=== PATIENT | male | born 1970 | race Caucasian/White ===

== ENCOUNTER 2020-09-08 09:57 | Emergency (ER) | payer BC ==
--- NOTE | 2020-09-08 10:13 | EDM.PDOC ---
ED HPI GENERAL MEDICAL PROBLEM - General Stated Complaint: A FIB Time Seen by Provider: 09/08/20 10:08 Source of Information: Reports: Patient, RN, RN Notes Reviewed History Limitations: Reports: No Limitations - History of Present Illness INITIAL COMMENTS - FREE TEXT/NARRATIVE: Patient is a 50-year-old male who presents to ER with complaint of fluttering in his chest, rapid heartbeat, dizziness, and diaphoresis. Patient states this began about 1/2-hour prior to arrival to the ER. He states he was sitting at his desk working. States a coworker checked his pulse and states his heart rate was in the 160s. Patient was diaphoretic and somewhat dizzy at that time. He states he has had episodes similar to this a few times over the past 6 months to 1 year. Patient states he has never come to the ER for them and has not been worked up by his primary care provider. Patient states his symptoms have resolved. Upon arrival to the ER patient is in a sinus rhythm at a controlled rate of 60s to 70s. Patient states history of open heart surgery for pericarditis in 2003. Patient denies any recent illness fever, chills, nausea, vomiting, diarrhea, chest pains, shortness of breath. Patient states he did have Covid in April, and has not been vaccinated. Also complains that the right lower leg has been more swollen than the left. Denies pain today. States approximately 3 weeks ago he was having some right knee pain which has resolved. Onset: Today, Sudden - Related Data Allergies Allergy/AdvReac Type Severity Reaction Status Date / Time No Known Allergies Allergy Verified 09/08/20 10:14 Home Meds: Home Meds Omeprazole 20 mg PO DAILY 09/08/20 [History] ED ROS GENERAL - Review of Systems Review Of Systems: Comprehensive ROS is negative, except as noted in HPI. ED EXAM, GENERAL - Physical Exam Exam: See Below Exam Limited By: No Limitations General Appearance: Alert, WD/WN Eye Exam: Bilateral Eye: EOMI, Normal Inspection Ears: Normal External Exam, Hearing Grossly Normal Nose: Normal Inspection Throat/Mouth: Normal Inspection, Normal Voice, No Airway Compromise Head: Atraumatic, Normocephalic Neck: Normal Inspection, Supple, Non-Tender, Full Range of Motion Respiratory/Chest: No Respiratory Distress, Lungs Clear, Normal Breath Sounds, No Accessory Muscle Use, Chest Non-Tender Cardiovascular: Normal Peripheral Pulses, Regular Rate, Rhythm, No Edema, No Gallop, No JVD, No Murmur, No Rub Peripheral Pulses: 2+: Radial (L), Radial (R), Dorsalis Pedis (L), Dorsalis Pedis (R) GI/Abdominal: Normal Bowel Sounds, Soft, Non-Tender (Male) Exam: Deferred Rectal (Males) Exam: Deferred Back Exam: Normal Inspection, Decreased Range of Motion Extremities: Normal Range of Motion, Non-Tender, Other (Right calf larger than left calf by 1-3/4 inches.). No: Kelsi's Sign Neurological: Alert, Oriented, CN II-XII Intact, Normal Cognition, Normal Gait, Normal Reflexes, No Motor/Sensory Deficits Psychiatric: Normal Affect, Normal Mood Skin Exam: Warm, Dry, Intact, Normal Color, No Rash Lymphatic: No Adenopathy Course - Vital Signs Last Recorded V/S: Last Vital Signs Temp 95.6 F L 09/08/20 10:14 Pulse 75 09/08/20 10:14 Resp 17 09/08/20 10:14 BP 170/101 H 09/08/20 10:14 Pulse Ox 100 09/08/20 10:14 - Orders/Labs/Meds Labs: Laboratory Tests 09/08/20 09/08/20 09/08/20 Range/Units 10:23 10:23 10:23 WBC 9.3 (5.0-10.0) 10^3/uL RBC 5.10 (4.6-6.2) 10^6/uL Hgb 16.7 (14.0-18.0) g/dL Hct 48.9 (40.0-54.0) % MCV 95.9 (80-100) fL MCH 32.7 (27.0-34.0) pg MCHC 34.2 (33.0-35.0) g/dL Plt Count 231 (150-450) 10^3/uL Neut % (Auto) 64.1 (42.2-75.2) % Lymph % (Auto) 22.4 (20.5-50.1) % [place] % (Auto) 10.5 H (2-8) % Eos % (Auto) 2.7 (1.0-3.0) % Baso % (Auto) 0.3 (0.0-1.0) % PT 10.2 (9.0-12.0) SEC INR 1.1 (0.9-1.2) D-Dimer, Quantitative 150 (0-400) ng/mL Sodium 140 (136-145) mmol/L Potassium 3.7 (3.5-5.1) mmol/L Chloride 102 (98-107) mmol/L Carbon Dioxide 28 (21-32) mmol/L Anion Gap 13.7 H (7-13) mEq/L BUN 22 H (7-18) mg/dL Creatinine 1.18 (0.70-1.30) mg/dL Est Cr Clr Drug Dosing 82.76 mL/min Estimated GFR (MDRD) > 60 BUN/Creatinine Ratio 18.6 (No establ ref range) Glucose 105 H (74-99) mg/dL Calcium 8.5 (8.5-10.1) mg/dL Total Bilirubin 0.5 (0.2-1.0) mg/dL AST 21 (15-37) U/L ALT 39 (16-63) U/L Alkaline Phosphatase 108 (46-116) U/L Troponin I < 0.017 (0.000-0.056) ng/mL Total Protein 7.7 (6.4-8.2) g/dL Albumin 3.5 (3.4-5.0) g/dL Globulin 4.2 Albumin/Globulin Ratio 0.8 Meds: Medications Discontinued Medications Generic Name Dose Route Start Last Admin Trade Name Freq PRN Reason Stop Dose Admin Sodium Chloride 1,000 mls @ 999 mls/hr 09/08/20 10:59 09/08/20 11:23 Normal Saline IV 09/08/20 11:59 999 mls/hr .BOLUS ONE Administration - Radiology Interpretation Free Text/Narrative:: Chest xray: PROCEDURE INFORMATION: Exam: XR Chest, 1 View Exam date and time: 09/08/2020 10:27 AM Age: 50 years old Clinical indication: Chest pain; Prior surgery TECHNIQUE: Imaging protocol: XR of the chest Views: 1 view. COMPARISON: No relevant prior exams. FINDINGS: Tubes, catheters and devices: Again noted are sternal wires. Lungs: Unremarkable. No consolidation. Pleural spaces: Unremarkable. No pleural effusion. No pneumothorax. Heart/Mediastinum: Moderate diffuse enlargement of the cardiac silhouette again noted. Bones/joints: Unremarkable. IMPRESSION: No acute cardiopulmonary disease. Thank you for allowing us to participate in the care of your patient. Dictated and Authenticated by: Mo Mejia MD 09/08/2020 10:36 AM Central Time ([place] & [place]) See rad report - Re-Assessments/Exams Free Text/Narrative Re-Assessment/Exam: 09/08/20 12:43 Patient has had no more episodes of rapid heartbeat or symptoms during his visit to the ER. Departure - Departure Time of Disposition: 12:04 Disposition: Home, Self-Care 01 Reason for Transfer *Q: Other Condition: Good Clinical Impression: Paroxysmal cardiac arrhythmia Instructions: Atrial Fibrillation, [id number] Forms: ED Department Discharge Additional Instructions: Follow up with primary care facility for further follow up of cardiac arrhythmia. Referral for Cardiology recommended Drink plenty of water Return to the ER with any further problems Sepsis Event Note (ED) - Focused Exam Vital Signs: Vital Signs Temp Pulse Resp BP Pulse Ox 09/08/20 10:14 95.6 F L 75 17 170/101 H 100
--- NOTE | 2020-09-08 10:36 | CR ---
PROCEDURE INFORMATION: Exam: XR Chest, 1 View Exam date and time: 09/08/2020 10:27 AM Age: 50 years old Clinical indication: Chest pain; Prior surgery TECHNIQUE: Imaging protocol: XR of the chest Views: 1 view. COMPARISON: No relevant prior exams. FINDINGS: Tubes, catheters and devices: Again noted are sternal wires. Lungs: Unremarkable. No consolidation. Pleural spaces: Unremarkable. No pleural effusion. No pneumothorax. Heart/Mediastinum: Moderate diffuse enlargement of the cardiac silhouette again noted. Bones/joints: Unremarkable. IMPRESSION: No acute cardiopulmonary disease.
[2020-09-08 10:52] LABS: ANION GAP 13.7 mEq/L (7-13); CHLORIDE,CL 102 mmol/L (98-107); SODIUM,NA 140 mmol/L (136-145)
[2020-09-08] MEDS ORDERED: Sodium Chloride 0.9% 1,000 ML IV ONE (10:59)
== END 2020-09-08 12:09 | disposition home or self-care (01) ==
LOC: DL.ED 09:57
DX: I49.9 Cardiac arrhythmia, unspecified (principal)
CPT/HCPCS: 36415; 71045; 80053; 84484; 85025; 85379; 85610; 93005; 99285; J7030; 99284

== ENCOUNTER 2021-01-11 17:44 | Emergency (ER) | payer BC ==
[2021-01-11] MEDS ORDERED: Sodium Chloride 0.9% 10 ML Syringe FLUSH PRN (18:06)
--- NOTE | 2021-01-11 18:13 | PCM.EKG ---
#1 Interpretation EKG Date: 01/11/21 Time: 18:01 Rhythm: NSR Rate (Beats/Min): 107 [place]: Normal P-Wave: Present QRS: Normal ST-T: Normal QT: Normal Comparison: No Change
[2021-01-11] MEDS ORDERED: Sodium Chloride 0.9% 1,000 ML IV ONE (18:25)
--- NOTE | 2021-01-11 18:26 | EDM.PDOC ---
ED HPI GENERAL MEDICAL PROBLEM - General Chief Complaint: Chest Pain Stated Complaint: HEART ISSUE, HARD TIME BREATHING Time Seen by Provider: 01/11/21 18:15 Source of Information: Reports: Patient History Limitations: Reports: No Limitations - History of Present Illness INITIAL COMMENTS - FREE TEXT/NARRATIVE: Patient comes emergency department today with complaints of rapid heart rate lightheadedness and sweating. This patient in the last couple of months has had a couple of episodes where he felt lightheaded he had some chest pressure and felt like he was going to pass out. He has been seen in the emergency department and there was concerns for paroxysmal tachycardic rhythm. Today he was out golfing he did not do much to drink for water. While he was golfing he found suddenly felt palpitations in his chest lightheaded got diaphoretic. He had no chest pain. He did not pass out. He has had no fever or chills. No nausea or vomiting. No abdominal pain. No hematuria dysuria urinary frequency. No black or tarry stools. Chest Pain Score (Numeric/FACES): 5 - Related Data Allergies Allergy/AdvReac Type Severity Reaction Status Date / Time No Known Allergies Allergy Verified 01/11/21 18:16 Home Meds: Home Meds Omeprazole 20 mg PO DAILY 09/08/20 [History] Past Medical History Cardiovascular History: Reports: Other (See Below) Other Cardiovascular History: episiole of Afib, converted on own Gastrointestinal History: Reports: GERD - Infectious Disease History Infectious Disease History: Reports: Novel Coronavirus - Past Surgical History Cardiovascular Surgical History: Reports: Other (See Below) Other Cardiovascular Surgeries/Procedures: open heart surgery for viral pericarditis (2003). Social & Family History - Family History Family Medical History: No Pertinent Family History - Tobacco Use Tobacco Use Status *Q: Never Tobacco User - Caffeine Use Caffeine Use: Reports: Coffee - Recreational Drug Use Recreational Drug Use: No ED ROS GENERAL - Review of Systems Review Of Systems: Comprehensive ROS is negative, except as noted in HPI. ED EXAM, GENERAL - Physical Exam Exam: See Below Exam Limited By: No Limitations General Appearance: Alert, WD/WN, No Apparent Distress Eye Exam: Bilateral Eye: EOMI Ears: Normal External Exam Nose: Normal Inspection Throat/Mouth: Normal Inspection Head: Atraumatic, Normocephalic Neck: Normal Inspection, Supple Respiratory/Chest: No Respiratory Distress, Lungs Clear, Normal Breath Sounds, No Accessory Muscle Use, Chest Non-Tender Cardiovascular: Normal Peripheral Pulses, Regular Rate, Rhythm, Tachycardia (Tachycardic with PACs and his heart rate gets up to 160s. It appears to be possibly A. fib when he gets very fast. But it does convert us on its own to a sinus rhythm.) Peripheral Pulses: 2+: Radial (L), Radial (R) GI/Abdominal: Normal Bowel Sounds, Soft (Male) Exam: Deferred Rectal (Males) Exam: Deferred Back Exam: Normal Inspection Extremities: Normal Inspection, Normal Range of Motion, No Pedal Edema, Normal Capillary Refill Neurological: Alert, Oriented, Normal Cognition, Normal Reflexes, No Motor/Sensory Deficits Psychiatric: Normal Affect, Normal Mood Skin Exam: Warm, Dry, Intact, Normal Color Course - Vital Signs Last Recorded V/S: Last Vital Signs Temp 97.5 F 01/11/21 18:03 Pulse 74 01/11/21 20:52 Resp 16 01/11/21 18:03 BP 145/90 H 01/11/21 20:52 Pulse Ox 99 01/11/21 18:03 - Orders/Labs/Meds Orders: Active Orders 24 hr Category Date Time Status UA RFX JOSE FRANCISCO AND CULT IF INDIC [URIN] Stat Lab 01/11/21 18:06 Ordered Sodium Chloride 0.9% [Saline Flush] Med 01/11/21 18:06 Active 10 ml FLUSH ASDIRECTED PRN Peripheral IV Insertion Adult [OM.PC] Stat Oth 01/11/21 18:06 Ordered Medication Orders Sodium Chloride (Sodium Chloride 0.9% 10 Ml Syringe) 10 ml FLUSH ASDIRECTED PRN PRN Reason: Keep Vein Open Last Admin: 01/11/21 18:54 Dose: 10 ml Documented by: [email or web address] Labs: Laboratory Tests 01/11/21 01/11/21 01/11/21 Range/Units 18:45 18:45 18:45 WBC 10.4 H (5.0-10.0) 10^3/uL RBC 4.91 (4.6-6.2) 10^6/uL Hgb 16.2 (14.0-18.0) g/dL Hct 47.9 (40.0-54.0) % MCV 97.6 (80-100) fL MCH 33.0 (27.0-34.0) pg MCHC 33.8 (33.0-35.0) g/dL Plt Count 250 (150-450) 10^3/uL Neut % (Auto) 72.0 (42.2-75.2) % Lymph % (Auto) 14.4 L (20.5-50.1) % [place] % (Auto) 12.0 H (2-8) % Eos % (Auto) 1.1 (1.0-3.0) % Baso % (Auto) 0.5 (0.0-1.0) % Sodium 143 (136-145) mmol/L Potassium 4.1 (3.5-5.1) mmol/L Chloride 106 (98-107) mmol/L Carbon Dioxide 26 (21-32) mmol/L Anion Gap 15.1 H (7-13) mEq/L BUN 18 (7-18) mg/dL Creatinine 1.37 H (0.70-1.30) mg/dL Est Cr Clr Drug Dosing 69.23 mL/min Estimated GFR (MDRD) 55 BUN/Creatinine Ratio 13.1 (No establ ref range) Glucose 86 (70-99) mg/dL Calcium 8.4 L (8.5-10.1) mg/dL Magnesium 2.0 (1.8-2.4) mg/dL Total Bilirubin 0.5 (0.2-1.0) mg/dL AST 27 (15-37) U/L ALT 41 (16-63) U/L Alkaline Phosphatase 106 (46-116) U/L Troponin I High Sens 60 (<=76) pg/mL Total Protein 7.4 (6.4-8.2) g/dL Albumin 3.4 (3.4-5.0) g/dL Globulin 4.0 Albumin/Globulin Ratio 0.9 TSH, Ultra Sensitive 2.96 (0.36-3.74) uIU/mL Ethyl Alcohol 14 (0) mg/dL Meds: Medications Generic Name Dose Route Start Last Admin Trade Name Freq PRN Reason Stop Dose Admin Sodium Chloride 10 ml 01/11/21 18:06 01/11/21 18:54 Sodium Chloride 0.9% 10 Ml Syringe FLUSH 10 ml ASDIRECTED PRN Administration Keep Vein Open Discontinued Medications Generic Name Dose Route Start Last Admin Trade Name Freq PRN Reason Stop Dose Admin Aspirin 324 mg 01/11/21 20:19 01/11/21 20:26 Aspirin 81 Mg Tab.Chew PO 01/11/21 20:20 324 mg ONETIME ONE Administration Sodium Chloride 1,000 mls @ 1,000 mls/hr 01/11/21 18:25 01/11/21 18:35 Normal Saline IV 01/11/21 19:24 1,000 mls/hr .BOLUS ONE Administration Metoprolol Succinate 25 mg 01/11/21 20:17 01/11/21 20:52 Metoprolol Succinate 25 Mg Tab.Er PO 01/11/21 20:18 25 mg ONETIME ONE Administration Metoprolol Succinate Confirm 01/11/21 20:49 Metoprolol Succinate 50 Mg Tab.Er Administered 01/11/21 20:50 Dose 50 mg .ROUTE .STK-MED ONE Metoprolol Tartrate 5 mg 01/11/21 18:51 01/11/21 18:59 Metoprolol Tartrate 5 Mg/5 Ml Sdv IVPUSH 01/11/21 18:52 5 mg ONETIME ONE Administration - Re-Assessments/Exams Free Text/Narrative Re-Assessment/Exam: 01/11/21 18:24 As I am doing my initial exam his EKG initially showed some sinus tachycardia with premature atrial complexes. It is noted that he gets a heart rate up to the 150-180 which is quite irregular and difficult to tell if its Afib. He converted on his own down to 100s NSR. IV was established labs are drawn. Initial EKG shows a sinus tachycardia with frequent PACs. We were unable to catch initially on his EKG that irregular tachycardia. 1 L of LR wide open. 01/11/21 19:01 Eventually we were able to catch the patient on the twelve-lead EKG that shows atrial fibrillation with RVR rate of 144. Patient was given 5mg of metoprolol IV push. Patient converted to normal sinus rhythm following the above therapy. His palpitations has resolved and is asymptomatic. His troponin is negative his TSH is normal. The rest of his labs are pretty unremarkable. The patient was monitored in the emergency department he did not have any recurrence of his atrial fibrillation. He was given Toprol-XL to 5 mg p.o. His [id number] score is 0 which gives him risk of stroke 0.2%. He clearly has paroxysmal atrial fibrillation. He has had short runs of this. He does not meet any guidelines for anticoagulation at this time. We will start him on a daily aspirin as well as Toprol daily. Have him follow-up with primary care next available for cardiology evaluation and long-term management. Discharge directions as below are explained to the patient he was comfortable with this plan his questions were answered. 01/11/21 21:17 His heart rate maintained in the 80s following the metoprolol. Departure - Departure Time of Disposition: 20:19 Disposition: Home, Self-Care 01 Clinical Impression: Paroxysmal atrial fibrillation with rapid ventricular response, CESARIO (acute kidney injury) Instructions: Atrial Fibrillation, [id number] Forms: ED Department Discharge Additional Instructions: Make sure and drink plenty of fluids the next few days. Start taking a baby aspirin 81mg daily Start taking Metoprolol XL 25mg 1 tablet daily to prevent a fib. Make appointment with PCP on friday for follow up. Return to the ED if new or worsening symptoms. Return to the ED if new or worsening symptoms especially weakness syncope Chest pain or SOB. Sepsis Event Note (ED) - Evaluation Sepsis Screening Result: No Definite Risk - Focused Exam Vital Signs: Vital Signs Temp Pulse Pulse Resp BP BP Pulse Ox 01/11/21 20:52 74 145/90 H 01/11/21 18:59 110 H 130/89 01/11/21 18:03 97.5 F 112 H 16 125/89 99 - My Orders Last 24 Hours: My Active Orders 01/11/21 18:06 UA RFX JOSE FRANCISCO AND CULT IF INDIC [URIN] Stat Sodium Chloride 0.9% [Saline Flush] 10 ml FLUSH ASDIRECTED PRN Peripheral IV Insertion Adult [OM.PC] Stat - Assessment/Plan Last 24 Hours: My Active Orders 01/11/21 18:06 UA RFX JOSE FRANCISCO AND CULT IF INDIC [URIN] Stat Sodium Chloride 0.9% [Saline Flush] 10 ml FLUSH ASDIRECTED PRN Peripheral IV Insertion Adult [OM.PC] Stat
[2021-01-11] MEDS ORDERED: Metoprolol Tartrate 5 MG/5 ML SDV IVPUSH ONE (18:51)
--- NOTE | 2021-01-11 18:51 | CR ---
PROCEDURE INFORMATION: Exam: XR Chest Exam date and time: 01/11/2021 6:14 PM Age: 50 years old Clinical indication: Shortness of breath; Other: Chest pain; Prior surgery; Surgery date: 6+ months; Surgery type: 01/19/2004; Additional info: Cp ADELSO TECHNIQUE: Imaging protocol: XR of the chest. Views: 2 views. COMPARISON: CR Chest 1V Frontal 09/08/2020 10:27 AM FINDINGS: Lungs: Unremarkable. No consolidation. Pleural spaces: Unremarkable. No pleural effusion. No pneumothorax. Heart/Mediastinum: Cardiomegaly. Bones/joints: Status post sternotomy. The spine demonstrates moderate degenerative changes. IMPRESSION: 1. Cardiomegaly. 2. No acute findings.
--- NOTE | 2021-01-11 19:03 | PCM.EKG ---
#2 Interpretation EKG Date: 01/11/21 Time: 18:47 Rhythm: A-Fib Rate (Beats/Min): 144 [place]: Normal P-Wave: Present QRS: Normal ST-T: Normal QT: Prolonged Comparison: Change From Previous EKG (Paroxysmal a fib.)
[2021-01-11 19:21] LABS: ANION GAP 15.1 mEq/L (7-13)
[2021-01-11] MEDS ORDERED: Metoprolol Succinate 25 MG Tab.ER PO ONE (20:17)
[2021-01-11] MEDS ORDERED: Aspirin 81 MG Tab.Chew PO ONE (20:19)
--- NOTE | 2021-01-11 20:47 | PCM.EKG ---
#1 Interpretation EKG Date: 01/11/21 Time: 20:37 Rhythm: NSR Rate (Beats/Min): 76 [place]: Normal P-Wave: Present QRS: Normal ST-T: Normal QT: Normal Comparison: Change From Previous EKG (Maintained NSR after the Metoprolol)
[2021-01-11] MEDS ORDERED: Metoprolol Succinate 50 MG Tab.ER ONE (20:49)
== END 2021-01-11 20:53 | disposition home or self-care (01) ==
LOC: DL.ED 17:44
DX: I48.0 Paroxysmal atrial fibrillation (principal); N17.9 Acute kidney failure, unspecified; K21.9 Gastro-esophageal reflux disease without esophagitis; Z79.899 Other long term (current) drug therapy
CPT/HCPCS: 36415; 71046; 80053; 80307; 83735; 84443; 84484; 85025; 93005; 93010; 96374; 99284; 99285; A9270; J3490; J7030